=== PATIENT | female | born 1995 | race Caucasian/White ===

== ENCOUNTER 2023-07-20 08:54 | Outpatient (CLI) | payer OTHER ==
[~2023-07-20] VITALS: Ht 157.5 cm; Wt 66.7 kg
[2023-07-20] MEDS ORDERED: PREDNISONE 5MG5 MG PO (09:06)
[2023-07-20] MEDS ORDERED: VYVANSE30 MG PO (09:06)
[2023-07-20 09:07] VITALS: BP 106/70; PULSE 60; TEMP 97.5
--- NOTE | 2023-07-20 10:11 | NUR ---
Pt ambulates independently to [facility] from ER waiting room for Caro IM shot. Pt accompanied by . Pt to recieve this injection per [facility] ER provider following an incomplete miscarriage earlier this morning. Pt vs are within normal limits and both pt and pt's are accurate historians. Pt discharged following IM injection and pt free from concerns and complaints at time of discharge. pt ambulates independently to ER exit.
== END 2023-07-20 09:50 | disposition home or self-care (01) ==
LOC: EUO 08:54
DX: O03.4 Incomplete spontaneous abortion without complication (principal)
CPT/HCPCS: J2791

== ENCOUNTER → 2023-10-20 | Outpatient (CLI) | payer OTHER ==
[~2023-10-20] MED LIST: PREDNISONE 5MG5 MG PO; TORADOL 10MG TA10 MG PO; VYVANSE30 MG PO
[2023-10-20 11:05] LABS: BASO % 0.5 % (0.0-2.0); EOS # 0.1 K/mm3 (0.0-0.7); EOS % 1.8 % (0.0-4.0); GRAN # 3.7 K/mm3 (1.4-6.5); GRAN % 60.8 % (42.2-75.2); HEMATOCRIT 40.9 % (37.0-47.0); HEMOGLOBIN 13.9 g/dl (12.5-16.0); LYMPH # 1.7 K/mm3 (1.2-3.4); LYMPH % 28.7 % (20.0-51.0); MEAN CELL VOLUME 92 fl (80.0-100.0); MEAN CORPUSCULAR HEMOGLOBIN 31 pg (27-31); MEAN CORPUSCULAR HGB CONC 34 g/dl (33.0-37.0); MEAN PLATELET VOLUME 9.7 fl (7.4-10.4); MONO # 0.5 K/mm3 (0.1-0.6); PLATELET COUNT 252 K/mm3 (130-400); RED BLOOD COUNT 4.47 M/mm3 (4.10-5.30); REDCELL DISTRIBUTION WIDTH-CV 11.8 % (11.5-14.5)
[2023-10-20 11:19] LABS: ALBUMIN 4.2 gm/dL (3.5-5.0); BILIRUBIN,TOTAL 0.7 mg/dL (0.2-1.2); C-REACTIVE PROTEIN 0.11 mg/dL (0.00-0.50); CALCIUM 9.1 mg/dL (8.4-10.2); CREATININE, serum 0.8 mg/dL (0.57-1.11); POTASSIUM 4.2 mmol/L (3.5-4.5); TOTAL PROTEIN 6.9 gm/dL (6.2-8.1)
[2023-10-22 10:27] LABS: C-ANCA 42 U/mL (0-99)
[2023-10-22 12:45] LABS: LYME DISEASE ANTIBODIES Negative (Negative); TB GOLD INTERPRETATION Negative (Negative)
== END ==
LOC: COL.LAB 09:19
PROVIDERS: Ophthalmology
DX: H30.002 Unspecified focal chorioretinal inflammation, left eye (principal)

== ENCOUNTER → 2024-07-20 | Outpatient (CLI) | payer OTHER ==
[~2024-07-20] MED LIST changes: +Iohexol 300 - 10 ML VIAL IV ONE
== END ==
LOC: COL.RAD 09:29
DX: N97.9 Female infertility, unspecified (principal)
CPT/HCPCS: Q9967